=== PATIENT | male | born 1985 | race Two or more races ===

== ENCOUNTER 2019-04-10 00:23 | Emergency (ER) | payer MEDICAID ==
[2019-04-10] MEDS ORDERED: Albuterol/Ipratropium NEB.SOL* Albuterol 2.5 MG/Ipratropium 0.5 MG 3 ML INH ONE (00:46)
--- NOTE | 2019-04-10 00:48 | ED ---
Respiratory - HPI Summary HPI Summary: Patient complains of difficulty in pain when taking a deep breath 1 hour. Denies prior history of same, trauma, fever, cough, sore throat, CP, N/V/D, abdominal pain, change in urine, change in BM. Denies seasonal allergies. Denies history of blood clots, recent history of long travel, recent surgery or trauma, unilateral leg pain, hemoptysis. Medical history is none. 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 Onset/Duration: Sudden Onset, Lasting Minutes Timing: Constant Initial Severity: Moderate Current Severity: Moderate Pain Intensity: 4 Character: Dyspnea at Rest Sputum Amount: None Aggravating Factor(s): Nothing Alleviating Factor(s): Nothing Associated Signs and Symptoms: SOB - Allergy/Home Medications Allergies/Adverse Reactions: Allergies Allergy/AdvReac Type Severity Reaction Status Date / Time No Known Allergies Allergy Verified 04/10/19 00:28 Home Medications: Home Medications NK [No Home Medications Reported] 04/10/19 [History Confirmed 04/10/19] PMH/Surg Hx/FS Hx/Imm Hx Endocrine/Hematology History: Denies: Hx Anticoagulant Therapy Cardiovascular History: Denies: Hx Pacemaker/ICD History: Denies: Hx Dialysis Sensory History: Denies: Hx Legally Blind Opthamlomology History: Denies: Hx Eye Prosthesis EENT History: Denies: Hx Deafness Neurological History: Denies: Hx Dementia Psychiatric History: Denies: Hx Autism Infectious Disease History: No Infectious Disease History: Reports: Traveled Outside the [place] in Last 30 Days - [place] - Family History Known Family History: Positive: Unknown - Social History Lives: With Family Alcohol Use: None Hx Substance Use: No Substance Use Type: Reports: None Smoking Status (MU): Never Smoked Tobacco Review of Systems Constitutional: Negative Eyes: Negative ENT: Negative Cardiovascular: Negative Positive: Shortness Of Breath Gastrointestinal: Negative Genitourinary: Negative Musculoskeletal: Negative Skin: Negative Neurological: Negative Psychological: Normal All Other Systems Reviewed And Are Negative: Yes Physical Exam - Summary Physical Exam Summary: Lung sounds clear to auscultation bilaterally. RRR. Abdomen soft nontender. No tenderness with palpation of chest wall. Triage Information Reviewed: Yes Vital Signs On Initial Exam: Initial Vitals Temp Pulse Resp BP Pulse Ox 98.0 F 68 16 135/81 100 04/10/19 00:25 04/10/19 00:25 04/10/19 00:25 04/10/19 00:25 04/10/19 00:25 Vital Signs Reviewed: Yes Appearance: Positive: Well-Appearing Skin: Positive: Warm Head/Face: Positive: Normal Head/Face Inspection Eyes: Positive: Normal ENT: Positive: Normal ENT inspection Neck: Positive: Supple Respiratory/Lung Sounds: Positive: Clear to Auscultation Cardiovascular: Positive: Normal Abdomen Description: Positive: Nontender Musculoskeletal: Positive: Normal Neurological: Positive: Normal Psychiatric: Positive: Normal AVPU Assessment: Alert - Roslyn Coma Scale Best Eye Response: 4 - Spontaneous Best Motor Response: 6 - Obeys Commands Best Verbal Response: 5 - Oriented Coma Scale Total: 15 Diagnostics - Vital Signs Vital Signs Temp Pulse Resp BP Pulse Ox 04/10/19 00:25 98.0 F 68 16 135/81 100 - Laboratory Lab Statement: Any lab studies that have been ordered have been reviewed, and results considered in the medical decision making process. Disposition - Course Course Of Treatment: Patient complains of difficulty in pain when taking a deep breath 1 hour. Denies prior history of same, trauma, fever, cough, sore throat , CP, N/V/D, abdominal pain, change in urine, change in BM. Denies seasonal allergies. Denies history of blood clots, recent history of long travel, recent surgery or trauma, unilateral leg pain, hemoptysis. Medical history is none. Physical exam:Physical exam:Lung sounds clear to auscultation bilaterally. RRR. Abdomen soft nontender. No tenderness with palpation of chest wall. Vital signs within normal limits. Patient in no apparent distress. Speaks for minutes at a time in full sentences. Completely symptoms completely improved with DuoNeb. EKG sinus rhythm. Chest x-ray negative for acute process. - Diagnoses Provider Diagnoses: Bronchospasm Discharge - Sign-Out/Discharge Documenting (check all that apply): Patient Departure Patient Received Moderate/Deep Sedation with Procedure: No - Discharge Plan Condition: Stable Disposition: HOME Patient Education Materials: Bronchospasm (ED) Referrals: No Primary Care Phys,NOPCP [Primary Care Provider] - [facility] [Outside] Additional Instructions: His inhaler as directed. Follow-up with primary care. Return to the ED for any new or worsening symptoms. - Billing Disposition and Condition Condition: STABLE Disposition: Home
[2019-04-10] MEDS ORDERED: Albuterol HFA INHALER* 8 gm MDI INH ONE (02:11)
[2019-04-10 02:17] VITALS: BP 95/66
[2019-04-10] MEDS ORDERED: Albuterol HFA INHALER* 8 gm MDI INH SCH (03:00)
== END 2019-04-10 02:16 | disposition home or self-care (01) ==
LOC: ED 00:23
DX: J98.01 Acute bronchospasm (principal); R94.31 Abnormal electrocardiogram [ECG] [EKG]
CPT/HCPCS: 71046; 93005; 99283; A9270-GY